=== PATIENT | female | born 1955 | race Caucasian/White ===

== ENCOUNTER 2019-08-14 12:07 | Emergency (ER) | payer MEDICARE, OTHER ==
[~2019-08-14] VITALS: Ht 160 cm; Wt 119.8 kg
[~2019-08-14 12:07] MED LIST: AMLO-145 ORAL; ESCI10TA48 ORAL; HYDR12.58 ORAL; PHEN37.53 ORAL; QUET300T18 ORAL
[2019-08-14 12:10] VITALS: Ht 160 cm; Wt 119.8 kg
[2019-08-14 14:35] VITALS: BP 110/70; PULSE 84; RESP 18
== END 2019-08-14 15:23 | disposition home or self-care (01) ==
LOC: E/R 12:07
DX: R53.1 Weakness (principal); I10 Essential (primary) hypertension; Z96.653 Presence of artificial knee joint, bilateral
CPT/HCPCS: 70450; 71045; 80048; 84484; 85025; 93005